=== PATIENT | female | born 1985 | race Caucasian/White ===

== ENCOUNTER → 2017-08-20 | Outpatient (CLI) | payer OTHER, MEDICAID ==
[~2017-08-20] MED LIST: ABILIFY 5 MG TAB5 M1 PO; ACID REFLUX; ALBUTEROL2.5 MG/3 M IH; AZITHROMYCIN 2250 MG PO; BENADRYL25 MG PO; CIPRO500 MG PO; CLARITIN10 MG PO; CLONAZEPAM 0.50.5 M1 PO; CLONAZEPAM 1 MG1 M1; CLONAZEPAM 1 MG1 M1 PO; DEXILANT60 MG PO; DOXYCYCLINE 10100 MG PO; FENTANYL PATCH75 MCG; FLAGYL500 MG PO; FLEXERIL PO; HYDROCODONE-AP1 EAC6 PO; HYDROCODONE-APA1 TA1 PO; IBUPROFEN 200200 M1 PO; IBUPROFEN 600600 M1 PO; IBUPROFEN 800800 M1 PO; LAMICTAL100 MG PO; LAMISIL250 MG; LAMOTRIGINE25 M2 PO; NEURONTIN 400400 M1 PO; NEURONTIN800 MG; NITROFURANTOIN100 MG PO; NORCO 10-325 T1 EACH PO; OMEPRAZOLE20 M2 PO; PERCOCET; PERCOCET 7.5-31 EACH PO; PERCOCET PO; PHENERGAN 25 MG25 M1; PREDNISONE 20 M20 M1 PO; PROMETHAZINE-D120 ML PO; PROTONIX 20 MG20 M1 PO; PROTONIX40 M1 PO; TOPAMAX 100 MG100 MG PO; TORADOL 10 MG T10 MG PO; TRAMADOL 50 MG50 MG; VICODIN HP 10-1 EAC1 PO; VITAMIN D2000 UNIT PO; WELLBUTRIN SR150 MG PO; ZANAFLEX4 M1 PO; ZANAFLEX4 MG PO; ZANTAC 150MG T150 MG PO; ZANTAC 7575 MG PO
== END ==
LOC: M.RAD 13:38
DX: M25.562 Pain in left knee (principal)